=== PATIENT | female | born 1995 | race Caucasian/White ===

== ENCOUNTER 2018-11-28 15:04 | Inpatient (IN) | payer MEDICAID, SELFPAY ==
--- NOTE | 2018-11-24 14:49 | PCM.HP.BLA ---
History and Physical Date of Admission: 11/29/18 Greta Monte Physician MARINE ENGINEER [facility] H&P Signed Encounter Date: 11/24/2018 Expand All Collapse All Hide copied text Aliyah for details Malena Arguello is a 22 year old female who presents for preop for section. Patient was found to be breech declines external cephalic version. Patient would like to proceed with a primary section. Cerclage was previously removed. ? PAST?MEDICAL?HISTORY PAST MEDICAL HISTORY Diagnosis Date ? Anemia complicating , second trimester 05/25/2018 ? Depression ? ? High risk due to recurrent loss, second trimester ? ? PAST?SURGICAL?HISTORY PAST SURGICAL HISTORY Procedure Laterality Date ? TONSILLECTOMY AND ADENOIDECTOMY HX ? 2015 ? FAMILY?HISTORY FAMILY HISTORY Problem Relation Age of Onset ? Depression Mother ? ? No Known Problems Father ? ? No Known Problems Sister ? ? No Known Problems Brother ? ? No Known Problems Maternal Grandmother ? ? No Known Problems Maternal Grandfather ? ? No Known Problems Paternal Grandmother ? ? No Known Problems Paternal Grandfather ? ? SOCIAL?HISTORY Social History Socioeconomic History Marital status: Single Spouse name: Not on file Number of children: Not on file Years of education: 8 Highest education level: Not on file Social Needs Financial resource strain: Not on file Food insecurity - worry: Not on file Food insecurity - inability: Not on file Transportation needs - medical: Not on file Transportation needs - non-medical: Not on file Occupational History Occupation: labor Employer: [employer] Tobacco Use Smoking status: Never Smoker Smokeless tobacco: Never Used Substance and Sexual Activity Alcohol use: No Drug use: No Sexual activity: Yes Partners: Male Other Topics Concerns: Not on file Social History Narrative Not on file ? CURRENT?MEDICATIONS ? Current Outpatient Medications: ONE A DAY WOMEN'S DHA 28 mg iron- 800 mcg cmpk Take 1 tablet by mouth once daily. folic acid 1 mg tablet Take 1 mg by mouth once daily. FERROUS SULFATE ORAL Take by mouth. Lactobacillus acidophilus (PROBIOTIC ORAL) Take by mouth. calcium carbonate/vitamin D3 (CALCIUM 500 + D, D3, ORAL) Take by mouth. hydroxyprogest,PF,,preg presv, (LIZBETH, PF,) 275 mg/1.1 mL AutoInjector Inject 1.1 mL subcutaneously once each week for 21 doses. ? No current facility-administered medications for this visit. Allergies As of Date: 11/24/2018 (No Known Allergies) Fully Assessed 11/24/2018 ? ? REVIEW OF SYSTEMS Abdomen: no pain Bladder: no dysuria.. Expanded ROS: Negative Allergies and current medication updated:Yes ? EXAM: BP 110/72 Wt 158 lb (71.7kg) LMP 03/01/2018 ? GENERAL: pleasant, female in no apparent distress HEENT: Normocephalic and atraumatic NECK: full range of motion DERMATOLOGY: Normal, without lesions, non-icteric and non-hirsute CARDIAC: Regular rate and rhythmNormal inspiratory effort CHEST: Normal inspiratory effort ABDOMEN: soft and Gravid, non tender PELVIC: external genitalia normal, physiologic discharge present, normal appearing perineal body and perianal region, NO POOLING, NEG NITRAZINE NEURO: alert and oriented x3,exam grossly non-focal E ? ASSESSMENT AND PLAN: Encounter Diagnosis ? ? ICD-10-CM ? 1. 38 weeks gestation of Z3A.38 URINE OB DIP B/O 2. Previous section Z98.891 ? ? 3. Pt has been counseled on risks/benefits and alternatives of surgery including but not limited to anesthesia, bleeding, infection, injury to pelvic structures including bowel, bladder, ureters and vessels. Pt wishes to proceed with surgery at this time. Greta Castellon MD ? ? Greta Castellon MD ? Routine Office Visit on 11/24/2018
[2018-11-28] VITALS (14 sets, daily range): BP systolic 87–121; BP diastolic 42–65; PULSE 68–106; RESP 14–18; TEMP 35.7–37.1; O2SAT 93–100; BMI 28.1
[2018-11-28] MEDS: Lactated Ringers 1,000 ML 999 ML IV (15:19)
[2018-11-28 15:39] LABS: Absolute Lymphocyte Count 1.93 X10^3/uL (0.83-4.51); Absolute Neutrophil Count 5.3 X10^3/uL (2.0-7.7); Basophil# 0.01 X10^3/uL; Basophil% 0.1 % (0-1); Eosinophil# 0.04 X10^3/uL; Eosinophils% 0.5 % (0-5); Hematocrit 37.8 % (37-47); Hemoglobin 12.9 g/dL (12.0-15.0); Lymphocyte # 1.93 X10^3/ul (4.0); Lymphocyte % 23.8 % (19-41); Mean Corp Hgb Conc 34.1 g/dL (32-36); Mean Corpuscular Hgb 29.8 pg (27.0-32.0); Mean Corpuscular Volume 87.3 fL (81-99); Mean Platelet Vol. 10.9 fl (6.2-12.0); Monocyte# 0.76 X10^3/uL; Monocyte% 9.4 % (0-10); NRBC Flagged by Analyzer 0 % (0-5); Neutrophil # 5.34 X10^3/uL (2.7-7.7); Neutrophil % 65.8 % (47-70); Platelet Count 191 K/mm3 (150-450); RBC Distribution Width CV 13.1 % (11.6-14.6); RBC Distribution Width SD 40.6 fl (35.1-43.9); Red Blood Count 4.33 M/mm3 (4.2-5.4); White Blood Count 8.1 K/mm3 (4.4-11.0)
[2018-11-28] MEDS: Sodium Citrate/Citric Acid 30 ML UDC PO (15:45)
[2018-11-28] MEDS: Cefazolin 2 GM in 0.9% Normal Saline 100 ML IV (15:55)
[2018-11-28] MEDS: Oxytocin 30 units/NS 500 ml 30 UNITS/500 ML IV.SOLN 167 UNITS IV (16:07)
[2018-11-28] MEDS: Lactated Ringers 1,000 ML 100 ML IV ×2 (16:15→18:03)
--- NOTE | 2018-11-28 16:51 | OP.PCM_ITS ---
Report of Operation Date of Procedure: 11/28/18 Pre-Operative Diagnosis: (1) Labor (2) Breech Post-Operative Diagnosis: Same Surgery/Procedure Performed:: Primary low transverse section Description of Surgical Findings:: Normal maternal uterus & adnexa coordinate measuring machine technician: Ginette Rae Type of Anesthesia:: Spinal Specimen's removed: Placenta - Admit VTE Documentation VTE Present on Admission: No VTE Mechan Device Prophylaxis: SCD's Delivery Classification: EDMUNDO Final MATHIEU: 12/06/18 Gestational age: 38 Weeks and 6 Days Indications for : Breech Description of Procedure: Patient taken to OR where spinal was placed. She was prepped and draped in normal sterile fashion in a dorsal supine position with a leftward tilt. After ensuring adequacy of anesthesia the Pfannensteil skin incision was made and carried through to the underlying fascia with a bovie. The fascia was incised in the midline and carried laterally with the Perez scissors. The rectus muscles were in the midline and the peritoneum was entered bluntly. The bladder flap was dissected down carefully with the Metzenbaum scissors and blunt dissection. The uterus was incised in a transverse fashion and then incision extended with cephalocaudad traction. The fetus was single footling breech and delivered by typical breech maneuvers. The 3VC cord was clamped and cut and the handed off to the waiting RN. The placenta was delivered w/ gentle traction and fundal massage and the uterus was exteriorized and cleared of all clots and debris. The uterine incision was closed with 1 vicryl suture in a running locked fashion. Monocryl was used as a second imbricating layer. The bovie was used to further obtain further hemostasis of the uterine incision. Excellent hemostasis of the uterine incision was noted. The uterus was returned to the peritoneal cavity. The pelvis was irrigated & then cleared of all clots and debris. The uterine incision was reexamined and found to be hemostatic. Some chris was placed over the uterine incision & bladder flap due to the denuded areas. The parietal peritoneum was reapproximated with running vicryl suture. The fascia was closed with looped PDS suture in a running standard fashion. The subcutaneous tissue was examined & any bleeding bovie cauterized. The subcutaneous tissue was reapproximated with plain gut suture. The skin was closed in a subcuticular fashion by the FRUIT AND VEGETABLE CLASSER with me present in the labor and delivery suite. I performed the remainder of the procedure w/ assistance. Amniotic Membrane Rupture Type: Artificial Amniotic Fluid Description: Clear Placenta Disposition: [facility] Drain: Ji to straight drain Fluids Replaced: 1500ml Cord Entanglement: None Cord Vessel Description: 3 Vessels Esitmated Blood Loss (ml): 800ml Gender: Female - Pamela (1 minute): 8 (5 minute): 9 Delayed cord clamping: No Pre-op Antibiotic Given: Ancef 2 grams IV x1 Complications: None - Admit VTE Documentation VTE Mechan Device Prophylaxis: SCD's
[2018-11-28] MEDS: Ketorolac 30 MG/ML Syringe IV (23:39)
[2018-11-29] VITALS (12 sets, daily range): BP systolic 96–109; BP diastolic 48–68; PULSE 75–91; RESP 16–18; TEMP 36.2–36.9; O2SAT 92–99
[2018-11-29] MEDS: Lactated Ringers 1,000 ML 100 ML IV (00:59)
[2018-11-29] MEDS: Ketorolac 30 MG/ML Syringe IV ×4 (05:35→23:34)
[2018-11-29 06:25] LABS: Hematocrit 25.2 % (37-47); Hemoglobin 8.2 g/dL (12.0-15.0); Mean Corp Hgb Conc 32.5 g/dL (32-36); Mean Platelet Vol. 10.9 fl (6.2-12.0); Platelet Count 103 K/mm3 (150-450); RBC Distribution Width SD 42.3 fl (35.1-43.9); Red Blood Count 2.83 M/mm3 (4.2-5.4); White Blood Count 8.5 K/mm3 (4.4-11.0)
--- NOTE | 2018-11-29 07:09 | PCM.PN.OB ---
Subjective: Pain controlled. Denies complaints. - Physical Exam General: Alert, Oriented x3 Abdomen: Soft, Non Tender, Non-Distended - ff mid & below umb Extremities: No Calf Tenderness Neurological: Cranial nerves II-XII grossly intact Vital Signs Temp Pulse Resp BP Pulse Ox 98.1 F 84 18 96/48 L 98 11/29/18 04:15 11/29/18 04:15 11/29/18 06:09 11/29/18 01:12 11/29/18 06:09 Oxygen Flow Rate (L/min) 2 Oxygen Delivery Method Nasal Cannula Weight: 154 lb Body Mass Index (BMI) 28.1 Intake and Output for Last 24 Hours 11/27/18 11/28/18 11/29/18 23:59 23:59 23:59 Intake Total 2197 / 2197 Output Total 200 / 200 1300 / 1300 Balance 1996 -1300 / -1300 Laboratory Tests Past 24 Hrs 11/28/18 11/28/18 11/29/18 15:19 15:19 05:55 WBC 8.1 8.5 RBC 4.33 2.83 L Hgb 12.9 8.2 L Hct 37.8 25.2 L MCV 87.3 89.0 MCH 29.8 29.0 MCHC 34.1 32.5 RDW Std Deviation 40.6 42.3 RDW Coeff of Brianda 13.1 13.0 Plt Count 191 103 L MPV 10.9 10.9 Immature Gran % (Auto) 0.400 Neut % (Auto) 65.8 Lymph % (Auto) 23.8 [place] % (Auto) 9.4 Eos % (Auto) 0.5 Baso % (Auto) 0.1 Absolute Neuts (auto) 5.3 Absolute Lymphs (auto) 1.93 Absolute Nucleated RBC 0.00 Nucleated RBC % 0 Blood Type A POSITIVE Antibody Screen NEGATIVE Medical Necessity - Tobacco Use Smoking Status: Never smoker Assessment/Plan POD#1 Heme - HDS, repeat cbc at noon today for acute blood loss anemia & thrombocytopenia ID - AF, no signs infection GI - ADAT - garcia, adequate UOP
[2018-11-29] MEDS: 0.9% Saline Lock 10 ML Syringe IV ×4 (08:46→23:34)
--- NOTE | 2018-11-29 09:05 | NURSING ---
WHILE PT IN BED, TOOK NC OFF AND PULSE OX 92%. GOT PT UP TO BATHROOM AND BACK TO CHAIR. LEFT NC OFF AND PULSE OX 95%. PLAN IS TO LEAVE O2 NC OFF AT THIS TIME.
[2018-11-29] MEDS: Senna/Docusate Sodium 1 Tablet PO (12:46)
[2018-11-29] MEDS: Acetaminophen 500 MG Tablet 1000 MG PO ×2 (12:47→22:18)
--- NOTE | 2018-11-29 14:06 | NURSING ---
Pt sitting up on couch in room. Denies any c/o. Pulse ox noted to decrease to 88%, but probe noted to be partially off toe. Respiratory in room to instruct incentive spirometer. New probe to index finger on left hand and now reading 99 % on room air.
[2018-11-29 14:59] LABS: Absolute Lymphocyte Count 1.07 X10^3/uL (0.83-4.51); Absolute Neutrophil Count 7.6 X10^3/uL (2.0-7.7); Basophil# 0.01 X10^3/uL; Basophil% 0.1 % (0-1); Eosinophil# 0.02 X10^3/uL; Eosinophils% 0.2 % (0-5); Hematocrit 26.2 % (37-47); Hemoglobin 8.7 g/dL (12.0-15.0); Lymphocyte # 1.07 X10^3/ul (4.0); Lymphocyte % 11.1 % (19-41); Mean Corp Hgb Conc 33.2 g/dL (32-36); Mean Corpuscular Hgb 30.1 pg (27.0-32.0); Mean Corpuscular Volume 90.7 fL (81-99); Mean Platelet Vol. 10.7 fl (6.2-12.0); Monocyte# 0.89 X10^3/uL; Monocyte% 9.3 % (0-10); NRBC Flagged by Analyzer 0 % (0-5); Neutrophil # 7.59 X10^3/uL (2.7-7.7); Platelet Count 116 K/mm3 (150-450); RBC Distribution Width CV 13.2 % (11.6-14.6); RBC Distribution Width SD 43.4 fl (35.1-43.9); Red Blood Count 2.89 M/mm3 (4.2-5.4); White Blood Count 9.6 K/mm3 (4.4-11.0)
[2018-11-29] MEDS: oxyCODONE 5 MG Tablet PO (22:39)
[2018-11-30 02:22] VITALS: BP 95/64; PULSE 87; RESP 16; TEMP 36.9
[2018-11-30] MEDS: Ketorolac 30 MG/ML Syringe IV ×2 (06:11→12:06)
[2018-11-30] MEDS: 0.9% Saline Lock 10 ML Syringe IV ×2 (06:11→12:06)
[2018-11-30 06:48] LABS: Hematocrit 23.9 % (37-47); Hemoglobin 7.9 g/dL (12.0-15.0); Mean Corp Hgb Conc 33.1 g/dL (32-36); Mean Corpuscular Hgb 29.7 pg (27.0-32.0); Mean Corpuscular Volume 89.8 fL (81-99); Mean Platelet Vol. 10.7 fl (6.2-12.0); Platelet Count 123 K/mm3 (150-450); RBC Distribution Width CV 13.4 % (11.6-14.6); RBC Distribution Width SD 43.8 fl (35.1-43.9); Red Blood Count 2.66 M/mm3 (4.2-5.4); White Blood Count 9.6 K/mm3 (4.4-11.0)
[2018-11-30 08:18] VITALS: BP 99/67; PULSE 79; RESP 16; TEMP 36.4; O2SAT 96
--- NOTE | 2018-11-30 08:34 | PCM.PN.OB ---
Subjective: Doing well per patient and nursing staff. Ambulating and taking PO without difficulty. Voiding and passing flatus. Denies any increased vaginal bleeding or clots. Pain controlled. without difficulty. Unsure if she wants to go home today. - Physical Exam General: Alert, Oriented x3, Cooperative HEENT: Atraumatic, Normocephalic Neck: Trachea Midline Lungs: Clear to auscultation, Normal air movement, No rhonchi, No wheeze Cardiovascular: Regular rate, Regular Rhythm, No murmurs Abdomen: Bowel Sounds Present, Soft, - - Fundus firm 2 below U Extremities: No edema Psych/Mental Status: Appropriate Vital Signs Temp Pulse Resp BP Pulse Ox 97.6 F L 79 16 99/67 96 11/30/18 08:18 11/30/18 08:18 11/30/18 08:18 11/30/18 08:18 11/30/18 08:18 Oxygen Flow Rate (L/min) 2 Oxygen Delivery Method Room Air Weight: 154 lb Body Mass Index (BMI) 28.1 Intake and Output for Last 24 Hours 11/28/18 11/29/18 11/30/18 23:59 23:59 23:59 Intake Total 2197 / 2197 Output Total 200 / 200 2200 / 2200 Balance 1996 -2199 / Laboratory Tests Past 24 Hrs 11/29/18 11/30/18 14:50 06:30 WBC 9.6 9.6 RBC 2.89 L 2.66 L Hgb 8.7 L 7.9 L Hct 26.2 L 23.9 L MCV 90.7 89.8 MCH 30.1 29.7 MCHC 33.2 33.1 RDW Std Deviation 43.4 43.8 RDW Coeff of Brianda 13.2 13.4 Plt Count 116 L 123 L MPV 10.7 10.7 Immature Gran % (Auto) 0.300 Neut % (Auto) 79.0 H Lymph % (Auto) 11.1 L [place] % (Auto) 9.3 Eos % (Auto) 0.2 Baso % (Auto) 0.1 Absolute Neuts (auto) 7.6 Absolute Lymphs (auto) 1.07 Absolute Nucleated RBC 0.00 Nucleated RBC % 0 Medical Necessity - Tobacco Use Smoking Status: Never smoker Assessment/Plan A:POD #2 Primary section for breech presentation Blood loss anemia P: 1) Routine and post op care 2) Ferrous sulfate 325mg PO BID 3) Unsure if going home today, will re-evaluate this afternoon
--- NOTE | 2018-11-30 10:15 | CASEMGMT ---
Social Work Assessment Labor and Delivery Unit Date of Referral: 11/30/18 Time of Referral: 8:10am Referred by: Carlos Constantino Date of Intervention: 11/30/18 Time of Intervention: 10:00am Reason for Referral: Flat Affect. Uncertain as to support available to pt. History obtained from: MOB Malena and RAGHU Bernal Household composition: MOB, FOB and baby Pamela, live in house Patient's parent/guardian status: They have custody of this baby Medical history: MOB--anemia 2nd trimester, depression, loss in 2nd trimester, tonsillectomy, adenoidectomy. Baby: Born 16:06pm on 11/30/18, 3197 grams, 18.5 inches. Baby born at 38 weeks 5 days, Apgars are 8 and 9. Difficult extraction at , baby had initial cyanosis, needed CPAP at . Concern for Trisomy 21, chromosome analysis in progress. MOB reports adequate care. Brine Purifier will be Dr. Montero. Education History: MOB has GED, FOLucy did not finish high school Financial Status: FOB works, MOB plans to work eventually. They report no financial concerns. Infant supplies: Parents report to have all supplies including car seat, crib, bassinet, clothing, bottles. MOB plans to breastfeed. Childcare/Caregivers: Parents plan to care for baby. Transportation: Parents have a car, RAGHU drives, MOB has a permit. Programs/Agencies involved: Enrolled in [facility] Children Services/Legal issues: Parents report none Behavioral health issues: MOB reports history of depression, she states has been a couple of years since having symptoms. MOB reports history of counseling 4 years ago, has not been in counseling recently. MOB not on meds for depression. Substance Abuse History/Drug Screens: MOB and FOB deny any history of substance abuse or alcohol abuse. They deny any family history of this also. No drug screens done on this admission on MOB or baby. Safety: MOB reports no concerns of safety at this time. Family/Social Stressors: Neither parent report any family stressors at this time. Support Systems: MOB reports her parents to be supportive, FOLucy reports his father to be supportive. MOB and FOB report to be together for two years. Depression and Anxiety/Shaken Baby/Safe Sleeping: ESTRELLITA reviewed all of this information with both parents and gave them information on all of these topics. ESTRELLITA also gave MOB list of counseling agencies in [facility], highlighting [facility] w/24 hour hotline if needed. SW emphasized w/MOB and FOB that she may be at higher risk for given her history of depression, reviewed some symptoms to watch for in regard to this. Assessment: SW met w/FOB and MOB, both appropriate, answered questions asked. MOB does have flat affect but appropriate, good eye contact. FOB holding baby during conversation and appropriate w/baby. They report to have all needed supplies, and report to have some family support. Both FOB and MOB deny any concerns or issues at this time. In addition to the information listed above, SW also reviewed [facility] and provided information on this, as well as provided a list of other resources in [facility]. Plan: Baby to go home w/FOB and MOB at discharge. No concerns from social work at this time. SW does remain available should any concerns arise or should parents have any questions for social media community manager. TRINA Rick
[2018-11-30] MEDS: Ferrous Sulfate 325 MG Tablet PO (12:06)
--- NOTE | 2018-11-30 12:25 | DCINST_ITS ---
Discharge Diet: No Restrictions Discharge Activity: Return to Normal Activity, May Not Drive - for 2 weeks, May not drive while taking narcotic pain medications., May Shower, May Take a Tub Bath - in 7 days. May resume sexual activity in: 4-6 weeks Lifting Restrictions: 20 pounds Additional Activity Instructions:: Nothing in the vagina for 4-6 weeks. You may return to work/school in 6 weeks. Call your doctor if your incision/area has: Continuous Slow Oozing, Sudden Increased Bleeding, Increased Pain/ Swelling, Increased Redness, Foul Smelling Discharge Call your doctor if you observe: Fever of 101 or Higher, Using more than one pad per hour - for 2 hours Suture Line Care: Avoid Pulling/Pushing, Avoid Pinching/Bending Cleanse incision/area with: Keep Dressing Clean & Dry Additional Instructions: If you experience any of the following, contact your healthcare provider. * Bleeding that soaks a pad every hour for 2 hours * Fever 100.4 or higher * Unrelieved incision or abdominal pain * Swelling, redness, discharge or bleeding from your incision or episiotomy site * Your incision begins to separate * Problems urinating (including inability to urinate or burning while urinating). * Visual changes * Severe headache * Flu-like symptoms * Pain or redness in one of both of your breasts * Pain, warmth, tenderness or swelling in your legs, especially the calf area * Frequent nausea and vomiting * Symptoms of depression or anxiety If you experience any of the following, call 911 or go to the nearest Emergency Room. * Chest pain * Problems breathing * Seizure activity * Partial or complete paralysis of a body part, slurred speech, weakness or drooping of the face, or a sudden inability to walk or hold your balance Allergies/Adverse Reactions: Allergies No Known Allergies Allergy (Verified 11/28/18 15:15) Medications to take at Discharge Ferrous Sulfate [Iron] 325 mg PO 11/28/18 Pnv No.95/Ferrous Fum/Folic AC [ Caplet] 11/28/18 Ibuprofen [Motrin] 600 mg PO Q6H PRN #60 tab 11/30/18 Oxycodone [Oxyir] 5 - 10 mg PO Q8 PRN 7 Days #28 tablet 11/30/18 The following prescriptions were given: Ibuprofen [Motrin] 600 mg PO Q6H PRN #60 tab PRN Reason: Pain Transmission Status: Pending to [facility] Oxycodone [Oxyir] 5 - 10 mg PO Q8 PRN 7 Days #28 tablet PRN Reason: Severe Pain (6-02/15) Transmission Status: Received by [facility] Follow-Up: Call to make an appointment with your doctor for an incision check in 1-2 weeks. You will also need a 6 week post- follow up appointment. Test results from this visit will be discussed in further detail at your follow- up appointment, if applicable. Please Follow Up With: Carlos Constantino - Call to make an appointment for an inci lucho check in 1-2 [phone] When: You will need a post check in 6 weeks. Primary Care Physician: Care Physician,No Primary [Primary Care Provider] -
--- NOTE | 2018-11-30 12:26 | DS.PCM_ITS ---
Discharge Date and Diagnosis Date of Admission: 11/29/18 Date of Discharge: 11/30/18 Hospital Course and Treatment Operations: - - Primary low transverse section via Pfannenstiel skin incision Procedures: None Summary of Care Provided: The patient is a 22 year old 2 para 1-0-1-1 presented at 38 6 weeks gestation with breech presentation and spontaneous rupture membranes. She underwent a primary low transverse section via Pfannenstiel skin incision without complication. Her uterus was closed in 2 layers with Vicryl type suture. She had some mild acute blood loss anemia appropriate for blood loss during the surgery. Her postoperative course was unremarkable on postop day 2 she was ambulating, urinating tolerating regular diet without difficulty and was discharged home with routine instructions and prescriptions. To follow- up in our office in 1-2 and 6 weeks or as needed. [] - Physical Exam Vital Signs Temp Pulse Resp BP Pulse Ox 97.6 F L 79 16 99/67 96 11/30/18 08:18 11/30/18 08:18 11/30/18 08:18 11/30/18 08:18 11/30/18 08:18 Oxygen Flow Rate (L/min) 2 Oxygen Delivery Method Room Air Weight: 69.853 kg Body Mass Index (BMI) 28.1 Intake and Output for Last 24 Hours 11/28/18 11/29/18 11/30/18 23:59 23:59 23:59 Intake Total 7 / 2197 Output Total 200 / 200 2200 / 2200 Balance 1996 -2199 / Laboratory Tests Past 24 Hrs 11/29/18 11/30/18 14:50 06:30 WBC 9.6 9.6 RBC 2.89 L 2.66 L Hgb 8.7 L 7.9 L Hct 26.2 L 23.9 L MCV 90.7 89.8 MCH 30.1 29.7 MCHC 33.2 33.1 RDW Std Deviation 43.4 43.8 RDW Coeff of Brianda 13.2 13.4 Plt Count 116 L 123 L MPV 10.7 10.7 Immature Gran % (Auto) 0.300 Neut % (Auto) 79.0 H Lymph % (Auto) 11.1 L [place] % (Auto) 9.3 Eos % (Auto) 0.2 Baso % (Auto) 0.1 Absolute Neuts (auto) 7.6 Absolute Lymphs (auto) 1.07 Absolute Nucleated RBC 0.00 Nucleated RBC % 0 Discharge Diet: No Restrictions Discharge Activity: Return to Normal Activity, May Not Drive - for 2 weeks, May not drive while taking narcotic pain medications., May Shower, May Take a Tub Bath - in 7 days. May resume sexual activity in: 4-6 weeks Additional Activity Instructions:: Nothing in the vagina for 4-6 weeks. You may return to work/school in 6 weeks. Call your doctor if your incision/area has: Continuous Slow Oozing, Sudden Increased Bleeding, Increased Pain/ Swelling, Increased Redness, Foul Smelling Discharge Call your doctor if you observe: Fever of 101 or Higher, Using more than one pad per hour - for 2 hours Suture Line Care: Avoid Pulling/Pushing, Avoid Pinching/Bending Cleanse incision/area with: Keep Dressing Clean & Dry Home Medications: Medications to take at Discharge Ferrous Sulfate [Iron] 325 mg PO 11/28/18 Pnv No.95/Ferrous Fum/Folic AC [ Caplet] 11/28/18 Ibuprofen [Motrin] 600 mg PO Q6H PRN #60 tab 11/30/18 Oxycodone [Oxyir] 5 - 10 mg PO Q8 PRN 7 Days #28 tablet 11/30/18 Following Prescrptions Were Given to Patient: Ibuprofen [Motrin] 600 mg PO Q6H PRN #60 tab PRN Reason: Pain Transmission Status: Pending to [facility] Oxycodone [Oxyir] 5 - 10 mg PO Q8 PRN 7 Days #28 tablet PRN Reason: Severe Pain (6-10/10) [facility] Primary Care Physician: Care Physician,No Primary [Primary Care Provider] - Please Follow Up With: Carlos Constantino - Call to make an appointment for an incision check in 1-2 [phone] When: You will need a post check in 6 weeks. Medical Necessity - Tobacco Use Smoking Status: Never smoker Meaningful Use Info Meaningful Use Diagnoses (Choose all that apply): None applicable
[2018-11-30 14:00] VITALS: BP 100/67; PULSE 81; RESP 16; TEMP 36.6; O2SAT 98
--- NOTE | 2018-11-30 15:17 | NURSING ---
1215 dc instructions given on pt and baby dc with no questions voiced. dc papers given. all belongings packed and with pt. up to dress and will call for dc. prosec alarm dc'd after verifying with moms bracelet.
--- NOTE | 2018-12-06 15:40 | NURSING ---
No answer on follow up phone call , message left.
== END 2018-11-30 15:30 | disposition home or self-care (01) | DRG 540 ==
PROVIDERS: Admitting Provider Obstetrics & Gynecology; Referring Provider Obstetrics & Gynecology; Visit Provider Obstetrics & Gynecology
PROC: (CPT 59514; principal; 2018-11-29 11:45)
DX: O32.8XX0 Maternal care for other malpresentation of fetus, not applicable or unspecified (principal); O99.02 Anemia complicating childbirth; D64.9 Anemia, unspecified; Z3A.38 38 weeks gestation of pregnancy; Z37.0 Single live birth; O72.3 Postpartum coagulation defects; D69.6 Thrombocytopenia, unspecified; O90.81 Anemia of the puerperium; D62 Acute posthemorrhagic anemia
CPT/HCPCS: 36415; 59025; 59050; 85025; 85027; 86850; 86900; 99218; J7120; A4216; G0378; J2405